=== PATIENT | female | born 1995 | race Caucasian/White ===

== ENCOUNTER 2018-10-09 12:27 | Inpatient (IN) | payer BC ==
[~2018-10-09] VITALS: Ht 165.1 cm; Wt 83.6 kg
[2018-10-09] VITALS (40 sets, daily range): BP systolic 90–170; BP diastolic 44–126; PULSE 74–150; TEMP 97.5–98.1
--- NOTE | 2018-10-09 12:15 | NUR ---
Pt arrives on unit ambulatory with spouse. Pt came over from [facility] from ultrasound appointment. States contractions started at 0300 and have increased in strength, duration and intensity. Changed into a clean gown. EFM and toco applied. VSS. SVE per this RN -. Admission assessment complete. Dr. Mar notified of pt status. Orders to monitor x1 hr and recheck SVE. Call with update. 1315-SVE per this RN with bloody show. Dr. Mar notified of changed SVE. FHR 135 with accelerations. Moderate variability. Orders to admit. IV started in LH. Labs drawn. LR infusing. Pt requests epidural. Jocelyne Jefferson CRNA notified. Consents signed. Pt updated on plan of care. Safety reviewed. No questions or concerns at this time.
[2018-10-09] MEDS ORDERED: PRENATAL MVI (12:57)
[2018-10-09 13:58] LABS: BASO # 0.1 (0.0-0.2); BASO % 0.5 % (0.0-2.0); EOS % 0.1 % (0-4.0); GRAN # 10.3 (1.4-6.5); GRAN % 75.6 % (42.2-75.2); HEMATOCRIT 38.2 % (37.0-47.0); HEMOGLOBIN 12.9 g/dl (12.5-16.0); LYMPH # 2.3 (1.2-3.4); LYMPH % 16.8 % (20.0-51.0); MEAN CELL VOLUME 91 fl (80.0-100.0); MEAN CORPUSCULAR HEMOGLOBIN 31 pg (27.0-31.0); MEAN CORPUSCULAR HGB CONC 34 g/dl (33.0-37.0); MEAN PLATELET VOLUME 12.4 fl (7.4-10.4); MONO # 0.9 (0.1-0.6); MONO % 6.3 % (1.7-9.3); PLATELET COUNT 227 K/mm3 (130-400); RED BLOOD COUNT 4.22 M/mm3 (4.10-5.30); REDCELL DISTRIBUTION WIDTH-CV 12.8 % (11.5-14.5)
--- NOTE | 2018-10-09 14:00 | NUR ---
Pt up to bathroom. Returned to bed for epidural placement. Sitting upright. Difficutly tracing FHR due to maternal position. RN at bedside adjusting monitors. 1418-Test dose administered by Jocelyne Jefferson CRNA. No adverse effects noted. See anesthesia record. Pt repositioned WL. FHR tracing. Call light within reach. Pt updated on plan of care. Safety reviewed. No questions or concerns at this time.
--- NOTE | 2018-10-09 17:00 | NUR ---
Dr. Mar at bedside. Discusses IUPC and pitocin. SVE per provider -/-3. IUPC placed. Pitocin infusion started per protocol.
--- NOTE | 2018-10-09 21:55 | NUR ---
1814- Bedside report taken from FAN Justice. Pitocin infusing at 8mU per protocol. 1834- SVE /-1 by Ace. SVE challenging due to how well-applied baby is and how posterior cervix is located. 1929- Minimal variability noted. Patient repositioned WR. 1944- RN to bedside. Patient feeling faint. Wet cloth applied. Fan on. Patient repositioned WL. IVF bolus. Low BP noted. RN remains at bedside. Late decel noted on FHT strip. 1954- SVE 7-/-1 by this RN. Subtle late decel noted. Patient repositioned LL. 2004- See Physician Notification. 2028- SVE Complete/+1 by Ace. 2032- updated. 2039- Patient begins pushing intermittently with RN. Patient is extremely overwhelmed and not tolerating labor process well emotionally. 2 RN's at bedside to calm patient and explain process of pushing. at bedside. Patient verbalizes understanding. Patient begins pushing intermittently again with staff. 2049- at bedside. 2107- O2 applied. Patient continues to push with RN. 2139- Grossman out. 200ml output noted. 2144- at bedside and begins pushing with patient. 2154- of viable baby boy. Cord clamped and cut. Cord blood obtained. Pitocin off. 2157- Spontaneous delivery of placenta. Pitocin infusing at 333 ml/hr per protocol. Fundus massaged to firm by . 2nd degree perineal laceration repaired by . Pericare provided. Ice pack applied. 2199- charting started.
[2018-10-10] VITALS: BP 131/79; PULSE 108; TEMP 98.9
[2018-10-10 04:00] VITALS: BP 126/86; PULSE 89; TEMP 97.2
[2018-10-10 08:25] VITALS: BP 133/89; PULSE 72; TEMP 97.3
[2018-10-10 12:00] VITALS: BP 125/79; PULSE 85; TEMP 98.3
[2018-10-10 17:30] VITALS: BP 133/88; PULSE 79; TEMP 98.1
--- NOTE | 2018-10-10 22:00 | NUR ---
Finished watching educational DVD's.
[2018-10-10 22:30] VITALS: BP 139/87; PULSE 80; TEMP 98.2
[2018-10-11 08:30] VITALS: BP 124/88; PULSE 77; TEMP 97.6
[2018-10-11] MEDS ORDERED: IBU800 M1 PO (10:43)
== END 2018-10-11 12:35 | disposition home or self-care (01) | DRG 807 ==
LOC: LDRO 12:27 → LDR 12:32 → LDRO 13:14 → LDR 13:15 → OB 10-10
PROVIDERS: ADMIT Obstetrics & Gynecology
PROC: 10E0XZZ Delivery of Products of Conception, External Approach (ICD-10-PCS; principal; 2018-10-09)
PROC: 0KQM0ZZ Repair Perineum Muscle, Open Approach (ICD-10-PCS; 2018-10-09)
DX: O70.1 Second degree perineal laceration during delivery (principal); Z37.0 Single live birth; Z3A.40 40 weeks gestation of pregnancy; O77.0 Labor and delivery complicated by meconium in amniotic fluid
CPT/HCPCS: J2405; J2590; J7120

== ENCOUNTER 2020-05-02 21:17 | Outpatient (CLI) | payer BC ==
[~2020-05-02] VITALS: Ht 165.1 cm; Wt 75.9 kg
--- NOTE | 2020-05-02 20:45 | NUR ---
Ambulatory to unit for labor assessment, acccompanied by spouse. Pt reports "my water broke @ 7:30" Momitor, plan of are briefly reviewed. Questions invited and answered. SVE amniotrace positive, clear fluid, cervix high and posterior.
--- NOTE | 2020-05-02 21:15 | NUR ---
2114 IV started in left hand by FAN Ray. 2129 IV started in right wrist by this nurse. Betamethasone 12mg given IM by FAN Ray.
[~2020-05-02 21:17] MED LIST: IBU800 M1 PO; PRENATAL MVI
[2020-05-02] MEDS ORDERED: PRENATAL TABLET PO (21:51)
[2020-05-02 21:52] VITALS: BP 124/84; PULSE 79; TEMP 98.2
[2020-05-02 22:00] VITALS: BP 114/58; PULSE 70
--- NOTE | 2020-05-02 22:00 | NUR ---
2139 Magnesium sulfate 4gm bolus started by this nurse and FAN Ray per orders. 2149 Patient c/o feeling "funny" "hot and like I am going to pass out". Fan on, cool wash cloth to forehead. Blood pressure 85/47. Magnesium sulfate turned off. IV fluid bolus started. Dr. Gold called and notified. Orders for ephedrine 10mg IV now. 2199 Ephedrine given per orders. BP 114/58.
[2020-05-02 22:15] VITALS: BP 119/71; PULSE 80
--- NOTE | 2020-05-02 22:30 | NUR ---
2205 EMS to room. Report given. Patient off EFM. 223 Patient discharged to care of EMS. Report called to [facility].
== END 2020-05-02 22:30 | disposition short-term general hospital (02) ==
LOC: LDRO 21:17
DX: O42.92 Full-term premature rupture of membranes, unspecified as to length of time between rupture and onset of labor (principal); Z3A.33 33 weeks gestation of pregnancy
CPT/HCPCS: J0456; J0690; J0702; J3475; J7050; J7120

== ENCOUNTER 2023-09-23 02:46 | Inpatient (IN) | payer BC ==
[~2023-09-23] VITALS: Ht 165.1 cm; Wt 80.5 kg
[2023-09-23] VITALS (12 sets, daily range): BP systolic 119–148; BP diastolic 76–86; PULSE 68–91; TEMP 97.8–98.1
[~2023-09-23 02:46] MED LIST changes: +PRENATAL TABLET PO
[2023-09-23 03:33] LABS: BASO # 0.1 K/mm3 (0.0-0.2); BASO % 0.4 % (0.0-2.0); EOS # 0.1 K/mm3 (0.0-0.7); EOS % 0.3 % (0.0-4.0); GRAN # 13.7 K/mm3 (1.4-6.5); GRAN % 73.9 % (42.2-75.2); HEMATOCRIT 37.1 % (37.0-47.0); HEMOGLOBIN 12.9 g/dl (12.5-16.0); LYMPH # 3.2 K/mm3 (1.2-3.4); MEAN CELL VOLUME 90 fl (80.0-100.0); MEAN CORPUSCULAR HEMOGLOBIN 31 pg (27-31); MEAN CORPUSCULAR HGB CONC 35 g/dl (33.0-37.0); MEAN PLATELET VOLUME 11.6 fl (7.4-10.4); MONO # 1.4 K/mm3 (0.1-0.6); MONO % 7.4 % (1.7-9.3); PLATELET COUNT 241 K/mm3 (130-400); RED BLOOD COUNT 4.14 M/mm3 (4.10-5.30); REDCELL DISTRIBUTION WIDTH-CV 13.4 % (11.5-14.5)
--- NOTE | 2023-09-23 04:00 | NUR ---
0250- PATIENT AMBULATORY TO UNIT WITH . STATED SHE SROM AT 0000 AND CONTRACTIONS STARTED AROUND THE SAME TIME AND CONTRACTIONS ARE 2 MINUTES APART. PATIENT CHANGED INTO BIRTHING GOWN. 025- EFMX2 APPLIED. 030- AMNIOSWAB NEGATIVE 030- SVE /[address] WILSON NOTIFIED OF SVE. STATED TO ADMIT PATIENT AND NOTIFY WHEN NEEDED FOR DELIVERY. 032- IV STARTED IN LEFT WRIST. 032- SROM MECONIUM STAINED. DR. WILSON NOTIFIED. 033- DR. WILSON AT BEDSIDE. 033- SVE COMPLETE PER DR. WILSON. BED BROKEN DOWN FOR DELIVERY. 033- PATIENT BEGINS PUSHING WITH CONTRACTIONS. 034- SPONTANEOUS VAGINAL DELIVERY OF VIABLE BABY GIRL. CORD CLAMPED BY DR. WILSON AND CUT BY FOB. BABY TO MOTHER ABDOMEN. DRIED AND STIMULATED. BABY CARES ASSUMED BY NURSERY RN. 0348- SPONTANEOUS DELIVERY OF INTACT PLACENTA THROUGH INTACT PERINEUM. 040- RECOVERY STARTED.
[2023-09-23] MEDS ORDERED: ZOLOFT 100MG100 MG PO (04:08)
--- NOTE | 2023-09-23 18:30 | NUR ---
Report recieved. Resting in bed at this time. in crib. Updated whiteboard and reviewed POC. Questions invited and declined.
[2023-09-24 09:00] VITALS: BP 130/80; PULSE 90; TEMP 97.9
[2023-09-24] MEDS ORDERED: IBU600 MG PO (09:22)
--- NOTE | 2023-09-24 09:24 | NUR ---
Initial visit; Parents thanked Crust Sorter for offering congratulations and God's blessings for the of their daughter. Crust Sorter thanked family for choosing [facility]/ [facility].
--- NOTE | 2023-09-24 10:45 | NUR ---
Discharge instructions and follow up care reviewed with pt and at the bedside. Both verbalized an understanding, agreed with the plan and states no questions or concerns at this time.
== END 2023-09-24 11:00 | disposition home or self-care (01) | DRG 807 ==
LOC: LDRO 02:46 → LDR 02:51 → LDRO 03:10 → LDR 03:11 → OB 08:20
PROVIDERS: Obstetrics & Gynecology; ADMIT Obstetrics & Gynecology
PROC: 10E0XZZ Delivery of Products of Conception, External Approach (ICD-10-PCS; principal; 2023-09-23)
DX: O48.0 Post-term pregnancy (principal); Z37.0 Single live birth; O99.344 Other mental disorders complicating childbirth; Z3A.41 41 weeks gestation of pregnancy; K21.9 Gastro-esophageal reflux disease without esophagitis; O99.62 Diseases of the digestive system complicating childbirth; O77.0 Labor and delivery complicated by meconium in amniotic fluid; F41.9 Anxiety disorder, unspecified; O69.81X0 Labor and delivery complicated by cord around neck, without compression, not applicable or unspecified; O71.89 Other specified obstetric trauma